=== PATIENT | female | born 1965 | race Caucasian/White ===

== ENCOUNTER 2021-09-26 11:27 | Emergency (ER) | payer BC, SELFPAY ==
[2021-09-26] VITALS (7 sets, daily range): BP systolic 114–172; BP diastolic 40–99; PULSE 66–74; RESP 18–31; TEMP 36.6; O2SAT 100
--- NOTE | ~2021-09-26 | XR_ITS ---
EXAMINATION: XR chest 1V portable DATE: 09/26/2021 12:03 INDICATION: Dyspnea. COVID-19 positive. TECHNIQUE: A single frontal view of the chest was obtained. COMPARISON: None. FINDINGS: The patient is rotated to her right. There are airspace opacities in the mid and lower lung zones. No pleural effusion or pneumothorax. The heart size is normal. IMPRESSION: 1. Airspace opacities in the mid and lower lung zones, consistent with COVID-19 pneumonia. Reviewed, dictated and finalized at location A. [employer]IST
--- NOTE | 2021-09-26 11:38 | ECG_ITS ---
Measurements Intervals [place] Rate: 66 P: 47 LA: 163 QRS: -11 QRSD: 87 T: 5 QT: 431 QTc: 454 Interpretive Statements SINUS RHYTHM LEFT VENTRICULAR HYPERTROPHY CONSIDER INFERIOR INFARCT, AGE INDETERMINATE T WAVE ABNORMALITY IN ANTERIOR LEADS- CONSIDER ISCHEMIA BASELINE ARTIFACT- I, III, AVR, AVL, AVF, V6 ABNORMAL ECG Electronically Signed On 09-27-2021 11:21:55 [employer] by Hayes Escamilla D.O.
[2021-09-26 11:55] LABS: Basophils Percent Auto 0.5 % (0.2-1.2); Eosinophils Percent Auto 0.2 % (0-4.4); Hematocrit 47.4 % (37.0-47.0); Hemoglobin 16.2 g/dL (12.0-15.0); Immature Granulocyte Absolute 0.03 K/mm3 (0.00-0.031); Immature Granulocyte Percent A 0.7 % (0-0.5); Lymphocytes Absolute Auto 1.54 K/mm3 (0.9-3.2); Lymphocytes Percent Auto 35.3 % (18.3-44.2); Mean Corpuscular HGB Conc 34.2 g/dl (32-36); Mean Corpuscular Hemoglobin 30.5 pg (26-34); Mean Corpuscular Volume 89.1 fl (80-100); Mean Platelet Volume 11.5 fl (7.4-10.4); Monocytes Absolute Auto 0.5 K/mm3 (0.1-0.6); Monocytes Percent Auto 11.5 % (2.6-8.5); Neutrophils Absolute Auto 2.3 K/mm3 (1.3-6.7); Neutrophils Percent Auto 51.8 % (45.5-73.1); Platelet Count Result 154 k/mm3 (150-375); Red Blood Count 5.32 M/mm3 (4.2-5.4); White Blood Count 4.4 K/mm3 (4.5-10.0)
[2021-09-26 12:07] LABS: Alanine Aminotransferase 43 U/L (4-35); Albumin Level 4.5 g/dL (3.5-5.1); Alkaline Phosphatase 80 U/L (38-126); Anion Gap 11 mmol/L (8-16); Aspartate Amino Transferase 53 U/L (14-36); Bilirubin,Total 1.1 mg/dL (0.2-1.3); Blood Urea Nitrogen 17 mg/dL (7-17); Calcium 9.6 mg/dL (8.4-10.2); Carbon Dioxide 20 mmol/L (22-30); Chloride 105 mmol/L (98-107); Estimated CRCL calculation 50 ml/min; Estimated Glomerular Filt Rate 46; Glucose 144 mg/dL (65-110); Potassium 4.2 mmol/L (3.4-5.0); Sodium 136 mmol/L (137-145)
[2021-09-26] MEDS: SODIUM CHLORIDE 0.9% IV 1,000 ML 999 ML IV CONT (12:17)
[2021-09-26] MEDS: ONDANSETRON INJ 4 MG/2 ML VIAL IV PUSH (12:18)
--- NOTE | 2021-09-26 17:05 | ED.GENADULT ---
HPI - General Adult General Chief complaint: Weakness Stated complaint: covid +, weakness Time Seen by Provider: 09/26/21 11:43 Source: patient Mode of arrival: ambulatory Limitations: no limitations History of Present Illness HPI narrative: Patient is a 56-year-old female presenting for evaluation of 6 days of fatigue, nausea, vomiting, diarrhea. Patient reports that she received [employer] vaccination without a booster. Patient reports that she feels that she is working harder to breathe. Patient denies any wheezing, syncope, neurological changes, chest pain. Patient nonproductive cough. Related Data Home Medications Medication Instructions Recorded Confirmed apixaban [Eliquis] mg 09/26/21 09/26/21 lisinopril 09/26/21 metoprolol succinate PO 09/26/21 sotalol 09/26/21 Allergies Allergy/AdvReac Type Severity Reaction Status Date / Time levofloxacin Allergy Severe Stopped Verified 09/26/21 11:35 Breathing erythromycin base AdvReac Gastrointestinal Verified 09/26/21 11:35 Upset Sulfa (Sulfonamide AdvReac Gastrointestinal Verified 09/26/21 11:35 Antibiotics) Upset Review of Systems Review of Systems: CONSTITUTIONAL: Reports fatigue denies fever, chills, or sweats. EYES: Denies visual changes, redness, or discharge. ENT: Denies rhinorrhea, congestion, sore throat, or otalgia. CARDIOVASCULAR: Denies chest pain, palpitations, or edema. RESPIRATORY: Denies cough GASTROINTESTINAL: Reports nausea, vomiting, or diarrhea. GENITOURINARY: Denies dysuria or hematuria. SKIN: Denies rash or itching. MUSCULOSKELETAL: Denies back pain, joint pain, or myalgia. NEUROLOGIC: Denies headache, numbness, dizziness, or weakness. PSYCHIATRIC: Denies anxiety or depression. Exam Narrative: GENERAL: Well-appearing, well-nourished, and in no acute distress. HEAD: Normocephalic, atraumatic. EYES: PERRLA and EOMI. CHEST: Clear to auscultation. No respiratory distress. No wheezes rales or rhonchi. Patient speaking in clear sentences without difficulty. Patient's oxygenation status is 99 to 100% on room air. HEART: Regular rate and rhythm. EXTREMITIES: Normal range of motion. No edema. SKIN: Warm, dry, no rash. NEURO: No focal deficits. Alert and oriented x3. PSYCH: Normal mood and affect. Course Vital Signs Vital signs: Vital Signs Temperature 97.9 F 09/26/21 11:31 Pulse Rate 72 09/26/21 11:31 Respiratory Rate 18 09/26/21 11:31 Blood Pressure 147/40 H 09/26/21 11:31 Pulse Oximetry 100 09/26/21 11:31 Temperature 97.9 F 09/26/21 11:31 Pulse Rate 66 09/26/21 12:24 Respiratory Rate 25 H 09/26/21 12:24 Blood Pressure 117/54 L 09/26/21 13:30 Pulse Oximetry 100 09/26/21 13:30 Medical Decision Making MDM Narrative Medical decision making narrative: Patient vitals are stable. Patient not hypoxic or toxic. Patient lab work is stable. Patient has been given Zofran and has been able to tolerate p.o. intake. Patient instructed to quarantine as instructed by the health department and discussed return ER instructions. Vital Signs Vital Signs: Vital Signs Temperature 97.9 F 09/26/21 11:31 Pulse Rate 72 09/26/21 11:31 Respiratory Rate 18 09/26/21 11:31 Blood Pressure 147/40 H 09/26/21 11:31 Pulse Oximetry 100 09/26/21 11:31 Temperature 97.9 F 09/26/21 11:31 Pulse Rate 66 09/26/21 12:24 Respiratory Rate 25 H 09/26/21 12:24 Blood Pressure 117/54 L 09/26/21 13:30 Pulse Oximetry 100 09/26/21 13:30 Lab Data Result diagrams: 09/26/21 11:46 09/26/21 11:47 Labs: Lab Results 09/26/21 09/26/21 Range/Units 11:46 11:47 WBC 4.4 L (4.5-10.0) K/mm3 RBC 5.32 (4.2-5.4) M/mm3 Hgb 16.2 H (12.0-15.0) g/dL Hct 47.4 H (37.0-47.0) % MCV 89.1 (80-100) fl MCH 30.5 (26-34) pg MCHC 34.2 (32-36) g/dl RDW 13.0 (11.5-14.5) % Plt Count 154 (150-375) k/mm3 MPV 11.5 H (7.4-10.4) fl Immature Gran %
== END 2021-09-26 13:49 | disposition home or self-care (01) ==
PROVIDERS: Emergency Provider Emergency Medicine; PCP Internal Medicine
DX: U07.1 COVID-19 (principal); R11.2 Nausea with vomiting, unspecified; R91.8 Other nonspecific abnormal finding of lung field
CPT/HCPCS: 36415; 71045; 80053; 85025; 93005; 96361; 96374; 99284; J2405; J7030